=== PATIENT | female | born 2000 | race African-American/Black ===

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

== ENCOUNTER 2022-04-05 22:45 | Emergency (ER) | payer MEDICAID, OTHER ==
[~2022-04-05] VITALS: Ht 165.1 cm; Wt 78.0 kg
[2022-04-06] MEDS ORDERED: IBUPROFEN 800MG TABLET PO ONE
[2022-04-06] MEDS ORDERED: ACETAMINOPHEN 325MG TABLET PO ONE
[2022-04-06 00:13] VITALS: BP 121/76
== END 2022-04-06 00:35 | disposition home or self-care (01) ==
LOC: ER 22:45
DX: R51.9 Headache, unspecified (principal)
CPT/HCPCS: 99283